=== PATIENT | female | born 1960 | race Caucasian/White ===

== ENCOUNTER 2018-06-08 00:09 | Inpatient (IN) | payer OTHER ==
[~2018-06-08] VITALS: Ht 165.1 cm; Wt 137.4 kg
[2018-06-08] VITALS (11 sets, daily range): BP systolic 119–199; BP diastolic 71–103
[~2018-06-08 00:09] MED LIST: AMLODIPINE BESY10 MG PO; ASPIR 8181 M1 PO; BILBERRY1 EAC1 PO; CRANBERRY400 MG PO; Cinnamon PO; DIABETA 5MG TABL5 MG PO; LEVOTHYROXIN0.112 M1 PO; METFORMIN HCL500 MG PO; PREDNISONE10 MG PO; PROBIOTIC1 EAC2 PO; PROTONIX40 M1 PO; Turmeric PO; VENTOLIN HFA 1818 GM INH; ZPAK PO; [UNRECOGNIZED DRUG - OTHER] PO
[2018-06-08 00:44] LABS: ABSOLUTE BASOPHILS 0.1 thou/uL (0.0-0.2); ABSOLUTE EOSINOPHILS 0.2 thou/uL (0.0-0.7); ABSOLUTE LYMPHOCYTES 4.2 thou/uL (0.8-5.3); ABSOLUTE NEUTROPHILS 7.9 thou/uL (1.6-8.1); BASOPHILS 0.7 %; EOSINOPHILS 1.5 %; HEMATOCRIT 45.5 % (37.0-47.0); HEMOGLOBIN 14.6 gm/dL (12.0-15.0); LYMPHOCYTES 31.4 %; MCH 28.5 pg (26.0-34.0); MCHC 32.1 g/dL (28.0-37.0); MCV 88.7 fL (80.0-100.0); MONOCYTES 7.6 %; MPV 8.1 fl. (7.2-11.1); NUCLEATED RBCS 0 /100WBC; PLATELET COUNT* 344 thou/uL (150-400); POLYS 58.8 %; RBC 5.13 mil/uL (4.20-5.00); RDW-CV 13.6 % (10.5-14.5); WBC 13.4 thou/uL (4.0-11.0)
[2018-06-08 00:51] LABS: PCO2 47.1 mmHg (35.0-45.0); pH 7.374 (7.340-7.450)
[2018-06-08 00:57] LABS: ANION GAP 7 mmol/L (7-16); BUN 13 mg/dL (7-18); CALCIUM 8.9 mg/dL (8.5-10.1); CHLORIDE 100 mmol/L (98-107); CO2 29 mmol/L (21-32); GLUCOSE 326 mg/dL (70-99); POTASSIUM 3.5 mmol/L (3.5-5.1); SODIUM 136 mmol/L (136-145); TROPONIN-I LEVEL <0.06 ng/mL (<0.06)
[2018-06-08 01:00] LABS: ALBUMIN 3.3 g/dL (3.4-5.0); ALKALINE PHOSPHATASE 113 U/L (46-116); LIPASE 165 U/L (73-393); NT-PRO BRAIN NAT PEPTIDE 104 pg/mL (<300); SGOT 18 U/L (15-37); SGPT 29 U/L (30-65); TOTAL BILIRUBIN 0.3 mg/dL (<0.1-1.0)
[2018-06-08 01:15] LABS: INFLUENZA A ANTIGEN None Detected (None Detect); INFLUENZA B ANTIGEN None Detected (None Detect)
--- NOTE | 2018-06-08 02:31 | NUR ---
LAB DRAWING BLOOD CULTURES AT PRESENT TIME
--- NOTE | 2018-06-08 06:07 | NUR ---
RECEIVED REPORT AND ASSUMED CARE AT 1900. VSS. CARDIAC MONITORING IN PLACE. PT DENIES COMPLAINTS OF PAIN. ASSESSMENT COMPLETED CHARTED. ADMISSION COMPLETED BY NURSING. PT ORIENTATED TO ROOM, CALL LIGHT, FALL POLICY. PT UP AD JAXON IN ROOM, ON RA. HOURLY ROUDNING COMPLETED ADN ALL NEEDS MET.
--- NOTE | 2018-06-08 09:41 | EKG ---
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[place] : 1960 Requested By: Jonathon Paul Order Number: [id number] MD: Ton Eaton Measurements Intervals [place] Rate: 105 P: 51 TN: 137 QRS: 30 QRSD: 88 T: 64 QT: 341 QTc: 451 Interpretive Statements Sinus tachycardia Abnormal R-wave progression, early transition Minimal ST depression, lateral leads Compared to ECG 05/20/2014 11:11:14 no change Electronically Signed On 06-08-2018 9:40:59 CDT by Ton Eaton [email or web address] <ELECTRONICALLY SIGNED> By: Ton Eaton MD, [facility] 06/08/18 0940 0105 0105 Ton Eaton MD, [facility] /EPI
--- NOTE | 2018-06-08 13:23 | NUR ---
Pt is A&O. Resides at home with her and grandson. Normally active and independent. No DME. Pt states that she does use her grandson's neb sometimes, but does not have any of his own equipment. No hx of HH or SNF. Goal [place].
--- NOTE | 2018-06-08 15:13 | EKG ---
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
--- NOTE | 2018-06-08 18:37 | NUR ---
PT A/O. TELE TRACKIN SINUS TACH AND ALL VSS ON 4.5L. DENIES CP, SOA AT REST. DOES HAVE GARCIA. EDUCATED ON SAFETY AND PLAN OF CARE. PLEASE SEE ASSESSMENT FOR ADDITIONAL INFORMATION. WILL CONTINUE TO MONITOR
[2018-06-09 01:50] VITALS: BP 138/74
[2018-06-09 04:00] VITALS: BP 113/62
[2018-06-09 04:47] LABS: HEMOGLOBIN 13.9 gm/dL (12.0-15.0); MCH 28.7 pg (26.0-34.0); MCHC 32.2 g/dL (28.0-37.0); MPV 8.3 fl. (7.2-11.1); RBC 4.83 mil/uL (4.20-5.00); RDW-CV 13.9 % (10.5-14.5)
[2018-06-09 05:27] LABS: CALCIUM 9.5 mg/dL (8.5-10.1); CREATININE 0.8 mg/dL (0.6-1.3); MAGNESIUM 2.1 mg/dL (1.8-2.4)
--- NOTE | 2018-06-09 07:40 | NUR ---
ASSUMED CARE OF PT AT 1900 PT ALERT AND ORIENTED X2 VS AND ASSESSMENT STABLE. PT RUNNING NSR TO ST. PT HAD MANUEL AND TYLENOL FOR PAIN THEN PT SLEPT THROUGH THE NIGHT. WILL CONTINUE PLAN OF CARE.
[2018-06-09 08:00] VITALS: BP 158/79
--- NOTE | 2018-06-09 08:24 | NUR ---
Pt does not qualify for [place] Medicaid per [employer]
[2018-06-09 11:31] VITALS: BP 139/58
--- NOTE | 2018-06-09 13:44 | EKG ---
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[facility] : 1960 Requested By: Ilir Angeles Order Number: [id number] Reading MD: Epifanio Hemphill Measurements Intervals [place] Rate: 91 P: 51 ND: 130 QRS: 37 QRSD: 88 T: 27 QT: 408 QTc: 503 Interpretive Statements Sinus rhythm Abnormal R-wave progression, early transition Borderline prolonged QT interval Compared to ECG 06/08/2018 03:45:18 Sinus tachycardia no longer present Inferior Q waves no longer present Q waves no longer present Electronically Signed On 06-09-2018 13:44:12 CDT by Epifanio Hemphill [email or web address] <ELECTRONICALLY SIGNED> By: Epifanio Hemphill MD, FACC 06/09/18 1344 0141 0141 Epifanio Hemphill MD, FAC /EPI
[2018-06-09 16:19] VITALS: BP 163/97
--- NOTE | 2018-06-09 17:27 | NUR ---
ASSUMED CARE OF PT THIS AM ASSESSED AND DOCUMENTED. PT REMAINS ON CARDIAC MONITERING. SHE HAS BEEM AFEBRILE. VSS WNL. SHE HAD C/O PAIN IN HER ABD BUT HAS NOT REQUIRED PAIN MEDS. PT HAS HAD NO S OR SX OF ADVERSE REACTION TO ABT AND AFTER THE 2ND ABT STATED HER ABD FELT BETTER. PT TAKES HER 02 OFF ON A REGULAR BASIS. SHE HAS NOT BEEN IN ANY DISTRESS FROM THIS AND 02 HAS REMAINED ABOVE 90. EDUCATION HAS BEEN GIVEN ON DEMAND. HOURLY ROUNDING CONTINUES.
[2018-06-09 20:20] VITALS: BP 136/67
[2018-06-10] VITALS (9 sets, daily range): BP systolic 151–204; BP diastolic 59–117
[2018-06-10 04:50] LABS: HEMOGLOBIN 13.9 gm/dL (12.0-15.0); MCH 28.6 pg (26.0-34.0); MCHC 32.2 g/dL (28.0-37.0); MCV 88.9 fL (80.0-100.0); MPV 8.1 fl. (7.2-11.1); RBC 4.84 mil/uL (4.20-5.00); RDW-CV 13.9 % (10.5-14.5); WBC 18.4 thou/uL (4.0-11.0)
[2018-06-10 05:10] LABS: CALCIUM 9.6 mg/dL (8.5-10.1); CREATININE 0.8 mg/dL (0.6-1.3); MAGNESIUM 2.2 mg/dL (1.8-2.4); POTASSIUM 4.3 mmol/L (3.5-5.1)
--- NOTE | 2018-06-10 05:35 | NUR ---
PT CARE ASSUMED AT 1930. SAT MAINTAINED IN 3L NC. ALERT AND ORIENTED X4. CALL LIGHT WITHIN REACH AND BED IN LOW POSITION. BP RAISED, CHARTED, MEDICATION GIVEN PER EMAR. PT IS ANXIOUS, SAYS SHE HAS BEEN THINKING A LOT ABOUT HER FAMILY. HOURLY ROUNDING DONE FOR PT JAYLIN.
[2018-06-10 07:36] LABS: AMP/METHAMP Negative (Negative); BARBITURATES Negative (Negative); BENZODIAZEPINES Negative (Negative); COCAINE Negative (Negative); METHADONE Negative (Negative); OPIATES Negative (Negative); PCP Negative (Negative); THC Negative (Negative)
--- NOTE | 2018-06-10 17:08 | NUR ---
PT UP IN ROOM WITH STEADY GAIT. REMAINS ON 02@3L NC. DENIES CHEST PAIN OR SOA.
[2018-06-11] VITALS: BP 133/73
[2018-06-11 04:00] VITALS: BP 111/78
--- NOTE | 2018-06-11 05:03 | NUR ---
PT CARE ASSUMED AT 1930. ALERT AND ORIENTED X 4. PT SAYS SHE FEELS BETTER THIS MORNING AND IS READY TO GO HOME. CALL LIGHT WITHIN REACH AND BED IN LOW POSITION. DENIES PAIN AND SOB. HOURLY ROUNDING DONE FOR PT SAFETY.
[2018-06-11 05:25] LABS: CREATININE 0.9 mg/dL (0.6-1.3); MAGNESIUM 1.8 mg/dL (1.8-2.4); POTASSIUM 4.7 mmol/L (3.5-5.1)
[2018-06-11 08:30] VITALS: BP 145/71
[2018-06-11] MEDS ORDERED: CEFDINIR300 MG PO (10:58)
[2018-06-11] MEDS ORDERED: GLUCOTROL5 MG PO (10:58)
[2018-06-11] MEDS ORDERED: GLUCOPHAGE XR500 MG PO (10:58)
[2018-06-11] MEDS ORDERED: LISINOPRIL20 MG PO (10:58)
[2018-06-11] MEDS ORDERED: VENTOLIN HFA 1818 GM INH (10:58)
[2018-06-11] MEDS ORDERED: OMEPRAZOLE40 MG PO (10:58)
[2018-06-11] MEDS ORDERED: PREDNISONE 10 M10 MG PO (10:58)
[2018-06-11] MEDS ORDERED: AZITHROMYCIN 2250 MG PO (10:58)
[2018-06-11] MEDS ORDERED: HYDROCHLOROTH12.5 M1 PO (10:58)
[2018-06-11 12:19] VITALS: BP 145/71
--- NOTE | 2018-06-11 13:10 | NUR ---
ASSUMED CARE OF PT THIS AM ASSESSED AND DOCUMENTED. SEE CHART. PT D/C'D TO HOME. ALL CONSULTS OK WITH D/C. EDUCATION GIVEN RE MEDICATIONS, DR ORDERS, AND FOLLOW-UPS. SCRIPTS GIVEN. D/C'D IV AND CARDIAC MONITER. ALL BELONGINGS PACKED UP AND LEFT WITH PT ACCOMPANIED BY AND STAFF. '
== END 2018-06-11 13:15 | disposition home or self-care (01) | DRG 189 ==
LOC: M.ERS 00:09 → M.2W 01:21 → M.TBA-ER 01:21 → M.2W 02:35
PROVIDERS: Emergency Medicine; Internal Medicine; ADMIT Internal Medicine
DX: J96.01 Acute respiratory failure with hypoxia (principal); J44.1 Chronic obstructive pulmonary disease with (acute) exacerbation; E66.2 Morbid (severe) obesity with alveolar hypoventilation; Z68.43 Body mass index [BMI] 50.0-59.9, adult; J96.02 Acute respiratory failure with hypercapnia; J20.8 Acute bronchitis due to other specified organisms; E11.65 Type 2 diabetes mellitus with hyperglycemia; I10 Essential (primary) hypertension; Z88.8 Allergy status to other drugs, medicaments and biological substances; Z98.891 History of uterine scar from previous surgery; Z87.891 Personal history of nicotine dependence

== ENCOUNTER 2020-12-18 20:56 | Inpatient (IN) | payer OTHER ==
[~2020-12-18] VITALS: Ht 165.1 cm; Wt 136.1 kg
[~2020-12-18 20:56] MED LIST changes: +AZITHROMYCIN 2250 MG PO; +CEFDINIR300 MG PO; +GLUCOPHAGE XR500 MG PO; +GLUCOTROL5 MG PO; +HYDROCHLOROTH12.5 M1 PO; +LISINOPRIL20 MG PO; +OMEPRAZOLE40 MG PO; +PREDNISONE 10 M10 MG PO
[2020-12-18 20:57] VITALS: BP 260/129
[2020-12-18 21:30] LABS: ABSOLUTE BASOPHILS 0.2 thou/uL (0.0-0.2); ABSOLUTE EOSINOPHILS 0.1 thou/uL (0.0-0.7); ABSOLUTE LYMPHOCYTES 2.8 thou/uL (0.8-5.3); ABSOLUTE MONOCYTES 1.1 thou/uL (0.0-1.2); ABSOLUTE NEUTROPHILS 9.7 thou/uL (1.6-8.1); BASOPHILS 1.4 %; EOSINOPHILS 0.9 %; HEMATOCRIT 45.6 % (37.0-47.0); HEMOGLOBIN 14.9 gm/dL (12.0-15.0); LYMPHOCYTES 20.3 %; MCH 28.9 pg (26.0-34.0); MCHC 32.6 g/dL (28.0-37.0); MCV 88.7 fL (80.0-100.0); MONOCYTES 7.7 %; MPV 7.7 fl. (7.2-11.1); NUCLEATED RBCS 0 /100WBC; PLATELET COUNT* 392 thou/uL (150-400); POLYS 69.7 %; RBC 5.14 mil/uL (4.20-5.00); RDW-CV 13.5 % (10.5-14.5); WBC 13.9 thou/uL (4.0-11.0)
[2020-12-18 21:38] LABS: CALCIUM 9.2 mg/dL (8.5-10.1); POTASSIUM 4.5 mmol/L (3.5-5.1)
[2020-12-18 21:47] LABS: BE 0.8 mmol/L (-2 to +3); PO2 60.1 mmHg (75.0-100.0)
[2020-12-18 21:54] LABS: ALBUMIN 3.5 g/dL (3.4-5.0); MAGNESIUM 1.9 mg/dL (1.8-2.4); TOTAL BILIRUBIN 0.2 mg/dL (<0.1-1.0); TOTAL PROTEIN 8.1 g/dL (6.4-8.2)
[2020-12-18 22:15] LABS: URINE BILIRUBIN NEGATIVE (Negative); URINE BLOOD TRACE (Negative); URINE CLARITY CLEAR; URINE COLOR YELLOW; URINE GLUCOSE-RANDOM 3+ (Negative); URINE KETONES NEGATIVE (Negative); URINE LEUKOCYTES-REFLEX NEGATIVE (Negative); URINE NITRITE-REFLEX NEGATIVE (Negative); URINE PROTEIN 3+ (Negative); URINE UROBILINOGEN 0.2 E.U./dl (0.2-1.0)
[2020-12-18 22:33] LABS: BACTERIA-REFLEX 1-9 Few /HPF (None Seen); CASTS None Seen /LPF (None Seen); CRYSTALS None Seen /LPF (None Seen); MUCUS 0-3 Light strn/LPF (None Seen); SQUAMOUS 0-3 Few /LPF (0-3); URINE RBC 0-2 Rare /HPF (0-2); URINE WBC-REFLEX 0-5 Rare /HPF (0-5)
[2020-12-18 23:53] VITALS: BP 156/88
[2020-12-19 00:30] VITALS: BP 133/86
[2020-12-19 04:00] VITALS: BP 149/79
[2020-12-19 08:00] VITALS: BP 192/89
[2020-12-19 12:10] VITALS: BP 15/68; BP 158/68
[2020-12-19 16:41] VITALS: BP 149/75
[2020-12-19 20:00] VITALS: BP 142/71
[2020-12-20] VITALS (9 sets, daily range): BP systolic 154–185; BP diastolic 73–91
[2020-12-20 02:06] LABS: GLYCOHEMOGLOBIN (HGB A1C) 10.6 % (4.8-5.6)
[2020-12-20 08:21] LABS: HEMATOCRIT 41.2 % (37.0-47.0); HEMOGLOBIN 13.3 gm/dL (12.0-15.0); MCH 28.5 pg (26.0-34.0); MCHC 32.2 g/dL (28.0-37.0); MCV 88.3 fL (80.0-100.0); RBC 4.67 mil/uL (4.20-5.00); RDW-CV 13.7 % (10.5-14.5); WBC 16.7 thou/uL (4.0-11.0)
[2020-12-20 09:19] LABS: CALCIUM 9.3 mg/dL (8.5-10.1); CREATININE 0.7 mg/dL (0.6-1.3); POTASSIUM 3.5 mmol/L (3.5-5.1)
--- NOTE | 2020-12-20 09:32 | EKG ---
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
[2020-12-21 00:35] VITALS: BP 162/76
[2020-12-21 04:31] VITALS: BP 163/74
[2020-12-21 08:00] VITALS: BP 183/87
[2020-12-21] MEDS ORDERED: LANTUS100 UNIT/M SUBQ (09:55)
[2020-12-21] MEDS ORDERED: HUMALOG100 UNIT/1 SUBQ (09:55)
[2020-12-21] MEDS ORDERED: ALBUTEROL2.5 MG/31 INH (09:55)
[2020-12-21 11:09] LABS: ABSOLUTE EOSINOPHILS 0.2 thou/uL (0.0-0.7); ABSOLUTE LYMPHOCYTES 5.3 thou/uL (0.8-5.3); ABSOLUTE MONOCYTES 1.3 thou/uL (0.0-1.2); ABSOLUTE NEUTROPHILS 9.2 thou/uL (1.6-8.1); BASOPHILS 0.3 %; EOSINOPHILS 1.1 %; HEMATOCRIT 39.6 % (37.0-47.0); HEMOGLOBIN 12.9 gm/dL (12.0-15.0); LYMPHOCYTES 33.2 %; MCH 28.9 pg (26.0-34.0); MCHC 32.6 g/dL (28.0-37.0); MCV 88.4 fL (80.0-100.0); MONOCYTES 7.8 %; MPV 7.5 fl. (7.2-11.1); NUCLEATED RBCS 0 /100WBC; PLATELET COUNT* 348 thou/uL (150-400); POLYS 57.6 %; RBC 4.48 mil/uL (4.20-5.00); RDW-CV 13.6 % (10.5-14.5)
== END 2020-12-21 12:35 | disposition home or self-care (01) | DRG 189 ==
LOC: M.ERS 20:56 → M.TBA-ER 23:11 → M.2W 12-19 00:20
PROVIDERS: Emergency Medicine; Family Medicine; Internal Medicine; ADMIT Internal Medicine; ATTEND Internal Medicine
DX: J96.01 Acute respiratory failure with hypoxia (principal); J44.1 Chronic obstructive pulmonary disease with (acute) exacerbation; I10 Essential (primary) hypertension; Z91.018 Allergy to other foods; Z91.048 Other nonmedicinal substance allergy status; E11.65 Type 2 diabetes mellitus with hyperglycemia; Z91.19 Patient's noncompliance with other medical treatment and regimen; E66.9 Obesity, unspecified; Z20.822 Contact with and (suspected) exposure to COVID-19